=== PATIENT | male | born 1955 | race Caucasian/White ===

== ENCOUNTER → 2022-05-25 | Outpatient (CLI) | payer MEDICARE ==
[~2022-05-25] MED LIST: CRESTOR10 MG PO; DIOVAN80 MG PO; ECOTRIN81 MG PO; HYDROCODON-ACE1 EAC6 PO; METOPROLOL TART25 MG PO; NITROSTAT 0.40.4 MG SL
== END ==
LOC: HEART 5 14:00
DX: R42 Dizziness and giddiness (principal); R53.83 Other fatigue; R12 Heartburn; R06.02 Shortness of breath; I08.1 Rheumatic disorders of both mitral and tricuspid valves; I27.20 Pulmonary hypertension, unspecified
CPT/HCPCS: 93306